=== PATIENT | female | born 1985 | race Hispanic/Latino ===

== ENCOUNTER 2017-04-12 05:32 | Emergency (ER) | payer OTHER ==
[2017-04-12 05:40] VITALS: O2SAT 100
[2017-04-12] MEDS ORDERED: Morphine 4 MG/ML VIAL IVP STA (05:53)
[2017-04-12] MEDS ORDERED: Sodium Chloride 0.9% 1,000 ML IV STA (05:54)
--- NOTE | 2017-04-12 06:11 | ED PDOC ---
HPI: Female Pain Time Seen by Provider: 04/12/17 05:44 Chief Complaint (Nursing): Female Genitourinary Chief Complaint (Provider): Female Genitourinary History Per: Patient History/Exam Limitations: no limitations Onset/Duration Of Symptoms: Hrs (x8) Current Symptoms Are (Timing): Still Present Quality Of Discomfort: "Pain" Associated Symptoms: denies: Nausea, Vomiting Additional Complaint(s): 32 year old female presents to ED with complaints of pelvic pain x8 hours and has no relevant past medical history. Patient states she was having uneventful sexual intercourse with her fiance prior to the pain. States that the pelvic pain traveled upwards into her lower abdomen and outwards bilaterally to her flanks. (-) nausea, vomiting, abnormal bowel movements. States that she has had ovarian cysts in the past, but that this pain is different. PCP: Rohit Rust Abnormal Vaginal Bleeding: No Past Medical History Reviewed: Historical Data, Nursing Documentation, Vital Signs Vital Signs: Last Vital Signs Temp 99.9 F H 04/12/17 05:35 Pulse 133 H 04/12/17 05:35 Resp 18 04/12/17 05:35 BP 129/76 04/12/17 05:35 Pulse Ox 100 04/12/17 05:35 - Medical History PMH: Anemia, Anxiety, Gastritis (with GI bleed), Gastrointestinal Ulcer (EGD "years ago") Denies: No Chronic Diseases, Chronic Kidney Disease - Surgical History Surgical History: Endoscopy, Tonsillectomy Denies: No Surg Hx - Family History Family History: States: Unknown Family Hx - Living Arrangements Living Arrangements: With Family - Social History Alcohol: None Drugs: Denies - Home Medications Home Medications: Ambulatory Orders Medication Instructions Recorded Dextroamphetamine/Amphetamine 30 mg PO BID #0 tablet 05/11/16 [Adderall 30 mg Tablet] Gabapentin [Neurontin] 1,200 mg PO HS #0 capsule 05/11/16 LORazepam [Ativan] 1 mg PO HS PRN #0 tab 05/11/16 Zolpidem [Ambien] 10 mg PO HS PRN #0 tab 05/11/16 Acetaminophen with Codeine 2 tab PO Q4H PRN #22 tab 11/18/16 [Tylenol with Codeine No. 3 300 mg-30 mg] Ondansetron [Zofran] 4 mg PO Q8H PRN #30 tab 11/18/16 Oseltamivir [Tamiflu] 75 mg PO BID #10 cap 11/18/16 - Allergies Allergies/Adverse Reactions: Allergies Allergy/AdvReac Type Severity Reaction Status Date / Time tramadol Allergy seizure Verified 05/10/16 12:55 Review of Systems ROS Statement: Except As Marked, All Systems Reviewed And Found Negative Gastrointestinal: Positive for: Abdominal Pain (pelvic pain radiates to lower abdomen and bilateral flanks). Negative for: Nausea, Vomiting Genitourinary Female: Positive for: Pelvic Pain Physical Exam - Reviewed Nursing Documentation Reviewed: Yes Vital Signs Reviewed: Yes - Physical Exam Appears: Positive for: Non-toxic, No Acute Distress Head Exam: Positive for: ATRAUMATIC Skin: Positive for: Normal Color, Warm, Dry Eye Exam: Positive for: Normal appearance, EOMI, PERRL ENT: Positive for: Normal ENT Inspection Neck: Positive for: Normal Cardiovascular/Chest: Positive for: Regular Rate, Rhythm, Tachycardia. Negative for: Murmur Respiratory: Positive for: Normal Breath Sounds. Negative for: Respiratory Distress Gastrointestinal/Abdominal: Positive for: Normal Exam, Soft, Tenderness (lower abdominal TTP), Guarding (voluntary). Negative for: Rebound Pelvic Exam: Positive for: Tender W/Cervical Motion, Tender Adnexa (bilateral), Other (circular shear operator: RN Renee; (+) TTP on internal exam; (-) erythema, lacerations, swelling). Negative for: External Exam Normal (TTP on external exam), Discharge Back: Positive for: Normal Inspection Extremity: Positive for: Normal ROM. Negative for: Deformity Neurologic/Psych: Positive for: Alert, Oriented. Negative for: Motor/Sensory Deficits - ECG O2 Sat by Pulse Oximetry: 100 (RA) Pulse Ox Interpretation: Normal Medical Decision Making Medical Decision Makin Initial impression: pelvic pain, unspecified Initial plan: * Labs * Lipase * Chlamydia/GC RNA, TMA * Morphine 2mg IVP * NS IV * Genital Cx * UA * US TRANSVAG * Re-eval 0700 Patient signed out to Dr. Abdalla pending US. Scribe Attestation: Documented by Africa Hobbs acting as a scribe for Galen Carl MD. Scribe Attestation: All medical record entries made by the Scribe were at my direction and personally dictated by me. I have reviewed the chart and agree that the record accurately reflects my personal performance of the history, physical exam, medical decision making, and the department course for this patient. I have also personally directed, reviewed, and agree with the discharge instructions and disposition. Disposition - Clinical Impression Clinical Impression: Pelvic pain - Disposition Disposition: Transfer of Care Disposition Time: 07:00 Condition: STABLE Patient Signed Over To: Abebe Abdalla Handoff Comments: Pending US
[2017-04-12 06:44] LABS: BASO % 0.5 % (0.0-2.0); EOS # 0.2 K/uL (0.0-0.7); EOS % 2.5 % (0.0-4.0); LYMPH # 2.4 K/uL (1.0-4.3); LYMPH % 30.9 % (20.0-40.0); MEAN CELL VOLUME 96.5 fl (81.0-99.0); MEAN CORPUSCULAR HEMOGLOBIN 32.7 pg (27.0-31.0); MEAN CORPUSCULAR HGB CONC 33.9 g/dL (33.0-37.0); MEAN PLATELET VOLUME 9.1 fl (7.2-11.7); MONO # 0.8 K/uL (0.0-0.8); MONO % 10.3 % (0.0-10.0); NEUT # 4.4 K/uL (1.8-7.0); NEUT % 55.8 % (50.0-75.0); NRBC % 0.1 % (0.0-0.0); RBC 3.66 Mil/uL (3.80-5.20); RED CELL DISTRIBUTION WIDTH 12.3 % (11.5-14.5); WHITE BLOOD COUNT 7.9 K/uL (4.8-10.8)
[2017-04-12 06:59] LABS: BLOOD UREA NITROGEN 18 mg/dl (7-17); CALCIUM 8.9 mg/dL (8.4-10.2); GFR AFRICAN-AMERICAN > 60; GFR NON-AFRICAN AMERICAN > 60; LIPASE 38 U/L (23-300)
[2017-04-12 07:12] LABS: SQUAMOUS EPITHIAL 4 /hpf (0-5); URINE BILIRUBIN NEGATIVE (NEGATIVE); URINE BLOOD NEGATIVE (NEGATIVE); URINE CLARITY SLIGHTY-CLOUDY (Clear); URINE COLOR YELLOW (YELLOW); URINE GLUCOSE (UA) NEG (Normal); URINE LEUKOCYTE ESTERASE TRACE Leu/uL (Negative); URINE NITRATE NEGATIVE (NEGATIVE); URINE PROTEIN 30 mg/dL (NEGATIVE); URINE UROBILINOGEN 0.2-1.0 mg/dL (0.2-1.0)
--- NOTE | 2017-04-12 10:07 | US ---
HISTORY: pelvic pain s/p intercourse COMPARISON: None available. TECHNIQUE: Transvaginal pelvic ultrasound was performed. FINDINGS: UTERUS: Measures 7.0 x 3.0 x 4.2 cm. Anteverted, normal in size and appearance. No fibroid or other mass lesion seen. ENDOMETRIUM: Measures 0.6 cm in diameter. Unremarkable. CERVIX: No cervical abnormality identified. RIGHT OVARY: Measures 4.2 x 3.0 x 3.6 cm. No solid mass. Normal flow. LEFT OVARY: Measures 3.8 x 2.4 x 2.7 cm. No solid mass. Normal flow. FREE FLUID: No significant free fluid noted. OTHER FINDINGS: None. IMPRESSION: Normal pelvic ultrasound.
--- NOTE | 2017-04-12 10:46 | ED PDOC ---
- Laboratory Results Result Diagrams: 04/12/17 06:13 04/12/17 06:13 - ECG O2 Sat by Pulse Oximetry: 100 (RA) - Progress Re-evaluation Time: 10:44 Condition: Improved (No pelvic pain) Disposition - Clinical Impression Clinical Impression: Pelvic pain - POA Present On Arrival: None - Disposition Referrals: Joey Bowser DO [Staff Provider] - Disposition: Routine/Home Disposition Time: 10:46 Condition: STABLE Prescriptions: Naproxen [Naprosyn] 500 mg PO Q12H #20 tab Instructions: Pelvic Pain in Women (ED)
[2017-04-12 10:59] VITALS: BP 140/87; PULSE 109; RESP 20; TEMP 98.1
== END 2017-04-12 11:18 | disposition home or self-care (01) ==
LOC: H.ER 05:32
DX: R10.2 Pelvic and perineal pain (principal); M31.1 Thrombotic microangiopathy